=== PATIENT | female | born 2000 | race African-American/Black ===

== ENCOUNTER 2020-06-24 08:51 | Emergency (ER) | payer OTHER ==
--- NOTE | 2020-06-24 09:10 | ER ---
Nurse's Notes [facility] Name: Elinor Johnson Age: 20 yrs Sex: Female : 2000 Arrival Date: 06/24/2020 Time: 08:55 Bed 18 Private MD: Diagnosis: Acute pharyngitis Presentation: 06/24 09:08 Chief complaint: Patient states: sore throat, white patchy tonsils, and fever started iw yesterday morning. Coronavirus screen: At this time, the client does not indicate any symptoms associated with coronavirus-19. Ebola Screen: Patient negative for fever greater than or equal to 101.5 degrees Fahrenheit, and additional compatible Ebola Virus Disease symptoms Patient denies exposure to infectious person. Patient denies travel to an Ebola-affected area in the 21 days before illness onset. No symptoms or risks identified at this time. Initial Sepsis Screen: Does the patient meet any 2 criteria? Temp <36.0*C (96.8*F)) or > 38.3*C (100.9*F). HR > 90 bpm. Does the patient have a suspected source of infection?. Risk Assessment: Do you want to hurt yourself or someone else? Patient reports no desire to harm self or others. Onset of symptoms was June 23, 2020. 09:08 Method Of Arrival: Ambulatory iw 09:08 Acuity: AKIL 4 iw Triage Assessment: 09:09 General: Appears distressed, uncomfortable, Behavior is calm, cooperative, appropriate bp for age. Pain: Complains of pain in neck. EENT: Reports pain when swallowing. Neuro: No deficits noted. Cardiovascular: No deficits noted. Respiratory: No deficits noted. GI: No signs and/or symptoms were reported involving the gastrointestinal system. : No signs and/or symptoms were reported regarding the genitourinary system. Derm: No deficits noted. Musculoskeletal: No deficits noted. Historical: - Allergies: 09:10 No Known Allergies; iw - Home Meds: 09:10 None [Active]; iw - PMHx: 09:10 None; iw - PSHx: 09:10 None; iw - Immunization history:: Adult Immunizations unknown, Adult Immunizations not up to date. - Social history:: Smoking status: Patient denies any tobacco usage or history of. Smoking status: Patient denies any tobacco usage or history of. Screenin:10 Abuse screen: Denies threats or abuse. Denies injuries from another. Nutritional bp screening: No deficits noted. Tuberculosis screening: No symptoms or risk factors identified. Fall Risk None identified. Assessment: 09:10 General: SEE TRIAGE NOTE. Respiratory: Airway is patent Respiratory effort is even, bp unlabored, Breath sounds are clear bilaterally. EENT: Throat is reddened has patchy exudate bilaterally. 09:25 Reassessment: PT D/C HOME AMBULATORY WITH FAMILY, DX WITH ACUTE PHARYNGITIS. bp Vital Signs: 09:08 BP 126 / 91; Pulse 123; Resp 16 S; Temp 102(TE); Pulse Ox 100% on R/A; Weight 98.43 kg; iw Height 5 ft. 3 in. (160.02 cm); Pain 7/10; 09:08 Body Mass Index 38.44 (98.43 kg, 160.02 cm) iw ED Course: 08:55 Patient arrived in ED. ds1 09:00 Jax Frye RN is Primary Nurse. bp 09:02 Alan Alfredo NP is PHCP. pm1 09:02 Seven Dumont MD is Attending Physician. pm1 09:08 Strep Sent. iw 09:10 Triage completed. iw 09:10 Arm band placed on. bp 09:10 Patient has correct armband on for positive identification. Bed in low position. Call bp light in reach. Side rails up X2. Adult w/ patient. 09:25 No provider procedures requiring assistance completed. Patient did not have IV access bp during this emergency room visit. Administered Medications: 09:26 Drug: Ibuprofen 600 mg Route: PO; bp 09:26 Follow up: Response: Medication administered at discharge. bp 09:26 Drug: Decadron 10 mg Route: IM; Site: affected area; bp 09:26 Follow up: Response: Medication administered at discharge. bp Outcome: 09:10 Discharge ordered by . pm1 09:25 Discharged to home ambulatory, with family. bp 09:25 Condition: stable 09:25 Discharge instructions given to patient, Instructed on discharge instructions, follow up and referral plans. medication usage, Demonstrated understanding of instructions, follow-up care, medications, Prescriptions given X 1. 09:26 Patient left the ED. bp Signatures: eJssica Oropeza ds1 Yary Marshall RN RN iw Alan Alfredo, LUMBER PILER OPERATOR LUMBER PILER OPERATOR pm1 Jax Frey, RN RN bp
--- NOTE | 2020-06-24 09:11 | EDPHYS ---
Physician Documentation [facility] Name: Elinor Johnson Age: 20 yrs Sex: Female : 2000 Arrival Date: 06/24/2020 Time: 08:55 Bed 18 Private MD: ED Physician Seven Dumont HPI: 06/24 09:09 This 20 yrs old Black Female presents to ER via Ambulatory with complaints of Sore pm1 Throat. 09:09 The patient presents with sore throat. The patient describes throat pain as raw, pm1 scratchy. Onset: The symptoms/episode began/occurred yesterday. Severity of symptoms: in the emergency department the symptoms are actually worse. Modifying factors: the symptoms are aggravated by fluids, foods, swallowing, Patient's oral intake status: good. Associated signs and symptoms: Pertinent positives: fever, Pertinent negatives cough, earache, shortness of breath. The patient has experienced similar episodes in the past, multiple times, typically gets strep throat once per year around this time. The patient has not recently seen a physician. Historical: - Allergies: 09:10 No Known Allergies; iw - Home Meds: 09:10 None [Active]; iw - PMHx: 09:10 None; iw - PSHx: 09:10 None; iw - Immunization history:: Adult Immunizations unknown, Adult Immunizations not up to date. - Social history:: Smoking status: Patient denies any tobacco usage or history of. Smoking status: Patient denies any tobacco usage or history of. ROS: 09:11 Eyes: Negative for injury, pain, redness, and discharge. pm1 09:11 Neck: Negative for injury, pain, and swelling, Cardiovascular: Negative for chest pain, palpitations, and edema, Respiratory: Negative for shortness of breath, cough, wheezing, and pleuritic chest pain, Abdomen/GI: Negative for abdominal pain, nausea, vomiting, diarrhea, and constipation, Back: Negative for injury and pain, MS/Extremity: Negative for injury and deformity, Skin: Negative for injury, rash, and discoloration, Neuro: Negative for headache, weakness, numbness, tingling, and seizure. 09:11 Constitutional: Positive for fever, Negative for poor PO intake. 09:11 ENT: Positive for sore throat, Negative for drainage from ear(s), ear pain. Exam: 09:11 Constitutional: This is a well developed, well nourished patient who is awake, alert, pm1 and in no acute distress. Head/Face: Normocephalic, atraumatic. Chest/axilla: Normal chest wall appearance and motion. Nontender with no deformity. No lesions are appreciated. 09:11 Skin: Warm, dry with normal turgor. Normal color with no rashes, no lesions, and no evidence of cellulitis. MS/ Extremity: Pulses equal, no cyanosis. Neurovascular intact. Full, normal range of motion. 09:11 ENT: External ear(s): are unremarkable, Ear canal(s): are normal, TM's: are normal, Posterior pharynx: Airway: normal, patent, Tonsils: bilaterally enlarged, with erythema, with exudate, no ulcerations, peritonsillar mass, is not appreciated, pooling of secretions, is not appreciated. 09:11 Cardiovascular: Exam negative for acute changes, Rate: tachycardic, Rhythm: regular, Pulses: no pulse deficits are appreciated. 09:11 Respiratory: Exam negative for acute changes, respiratory distress, shortness of breath. 09:11 Neuro: Exam negative for acute changes, Orientation: is normal, Mentation: is normal, Motor: is normal, Sensation: is normal, Gait: is steady, at a normal pace, without difficulty. Vital Signs: 09:08 BP 126 / 91; Pulse 123; Resp 16 S; Temp 102(TE); Pulse Ox 100% on R/A; Weight 98.43 kg; iw Height 5 ft. 3 in. (160.02 cm); Pain 7/10; 09:08 Body Mass Index 38.44 (98.43 kg, 160.02 cm) iw MDM: 09:06 Patient medically screened. pm1 09:09 Counseling: I had a detailed discussion with the patient and/or guardian regarding: the pm1 historical points, exam findings, and any diagnostic results supporting the discharge/admit diagnosis, the need for outpatient follow up, to return to the emergency department if symptoms worsen or persist or if there are any questions or concerns that arise at home. 09:26 Data reviewed: vital signs. Data interpreted: Pulse oximetry: on room air is 100 %. pm1 Interpretation: normal. 06/24 09:04 Order name: Strep bp 06/24 09:24 Order name: Group A Streptococcus Rapid Sc; Complete Time: :25 EDMS Administered Medications: : Drug: Ibuprofen 600 mg Route: PO; bp : Follow up: Response: Medication administered at discharge. bp : Drug: Decadron 10 mg Route: IM; Site: affected area; bp : Follow up: Response: Medication administered at discharge. bp Disposition: 14:53 Co-signature as Attending Physician, Seven Dumont MD I agree with the assessment and kdr plan of care. Disposition: 06/24/20 09:10 Discharged to Home. Impression: Acute pharyngitis. - Condition is Stable. - Discharge Instructions: Fever, Adult, Pharyngitis. - Prescriptions for Amoxicillin 500 mg Oral Capsule - take 1 capsule by ORAL route every 8 hours for 10 days; 30 tablet. - Medication Reconciliation Form, Thank You Letter, Antibiotic Education, Prescription Opioid Use form. - Follow up: Emergency Department; When: As needed; Reason: Worsening of condition. Follow up: Private Physician; When: 2 - 3 days; Reason: Recheck today's complaints, Continuance of care, Re-evaluation by your physician. - Problem is new. - Symptoms have improved. Signatures: Dispatcher [employer] EDKS Seven Dumont MD MD kdr Yary Marshall RN RN Alan Alfredo NP EGG SORTER pm1 Jax Frey RN RN bp Corrections: (The following items were deleted from the chart) : 09:10 06/24/2020 09:10 Discharged to Home. Impression: Acute pharyngitis. Condition is bp Stable. Forms are Medication Reconciliation Form, Thank You Letter, Antibiotic Education, Prescription Opioid Use. Follow up: Emergency Department; When: As needed; Reason: Worsening of condition. Follow up: Private Physician; When: 2 - 3 days; Reason: Recheck today's complaints, Continuance of care, Re-evaluation by your physician. Problem is new. Symptoms have improved. pm1
[2020-06-24] MEDS ORDERED: dexAMETHasone 4 MG/ML VIAL ONE ×2 (09:32→09:33)
[2020-06-24] MEDS ORDERED: IBUPROFEN 200 MG TAB PO ONE (09:32)
[2020-06-24 09:47] VITALS: BP 126/91; TEMP 102; O2SAT 100
== END 2020-06-24 09:26 | disposition home or self-care (01) ==
LOC: ER 08:51
DX: J02.9 Acute pharyngitis, unspecified (principal)
CPT/HCPCS: 87070; 87081; 96372; 99283

== ENCOUNTER 2020-08-24 13:41 | Emergency (ER) | payer OTHER ==
--- OUTSIDE RECORDS SUMMARY | 2020-08-24 13:44 | XMS REPORT | Continuity of Care Document ---
:2000 Author Organization [facility] t Address [address] [place] [address] Dr. Cruz [address] [place] [id number] Care Team Providers Name Role Phone Unavailable Unavailable Unavailable Problems This patient has no known problems. Allergies, Adverse Reactions, Alerts This patient has no known allergies or adverse reactions. Medications This patient has no known medications. Procedures This patient has no known procedures. Results This patient has no known results.
[2020-08-24 15:08] LABS: Urine Blood NEGATIVE (NEG); Urine Glucose NEGATIVE (NEG); Urine Protein NEGATIVE (NEG); Urine pH 5.5 (5.0-7.0)
--- NOTE | 2020-08-24 15:13 | EDPHYS ---
Physician Documentation [facility] Name: Elinor Johnson Age: 20 yrs Sex: Female : 2000 Arrival Date: 08/24/2020 Time: 13:44 Bed 14 Private MD: ED Physician Sandie Thomas HPI: 08/24 15:12 This 20 yrs old Black Female presents to ER via Ambulatory with complaints of Back Pain.kb 15:12 The patient presents with pain that is acute. The symptoms are located in the low back. kb Onset: The symptoms/episode began/occurred 3 week(s) ago. The pain does not radiate. Associated signs and symptoms: The patient has no apparent associated signs or symptoms. The problem was sustained from unknown cause. Modifying factors: The patient symptoms are alleviated by nothing, the patient symptoms are aggravated by any movement. Severity of symptoms: At their worst the symptoms were mild, in the emergency department the symptoms are unchanged. The patient has not experienced similar symptoms in the past. The patient has not recently seen a physician. 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 - Social history:: Smoking status: Patient denies any tobacco usage or history of. ROS: 15:11 Constitutional: Negative for fever, chills, and weight loss, Cardiovascular: Negative kb for chest pain, palpitations, and edema, Respiratory: Negative for shortness of breath, cough, wheezing, and pleuritic chest pain, Abdomen/GI: Negative for abdominal pain, nausea, vomiting, diarrhea, and constipation, : Negative for injury, bleeding, discharge, and swelling, MS/Extremity: Negative for injury and deformity, Skin: Negative for injury, rash, and discoloration, Neuro: Negative for headache, weakness, numbness, tingling, and seizure. 15:11 Back: Positive for pain at rest, pain with movement, of the left low back and right low back. Exam: 15:11 Constitutional: This is a well developed, well nourished patient who is awake, alert, kb and in no acute distress. Head/Face: Normocephalic, atraumatic. Chest/axilla: Normal chest wall appearance and motion. Nontender with no deformity. No lesions are appreciated. Cardiovascular: Regular rate and rhythm with a normal S1 and S2. No gallops, murmurs, or rubs. Normal PMI, no JVD. No pulse deficits. Respiratory: Lungs have equal breath sounds bilaterally, clear to auscultation and percussion. No rales, rhonchi or wheezes noted. No increased work of breathing, no retractions or nasal flaring. Abdomen/GI: Soft, non-tender, with normal bowel sounds. No distension or tympany. No guarding or rebound. No evidence of tenderness throughout. Skin: Warm, dry with normal turgor. Normal color with no rashes, no lesions, and no evidence of cellulitis. MS/ Extremity: Pulses equal, no cyanosis. Neurovascular intact. Full, normal range of motion. Neuro: Awake and alert, GCS 15, oriented to person, place, time, and situation. Cranial nerves II-XII grossly intact. Motor strength 5/5 in all extremities. Sensory grossly intact. Cerebellar exam normal. Normal gait. 15:11 Back: pain, that is mild, of the left low back and right low back, ROM is normal, normal spinal alignment noted. Vital Signs: 14:02 BP 127 / 80; Pulse 101; Resp 16; Temp 97.7; Pulse Ox 100% on R/A; Weight 100.24 kg; iw Height 5 ft. 3 in. (160.02 cm); Pain 5/10; 14:02 Body Mass Index 39.15 (100.24 kg, 160.02 cm) iw MDM: 14:39 Patient medically screened. kb 15:11 Data reviewed: vital signs, nurses notes. Data interpreted: Pulse oximetry: on room air kb is 100 %. Interpretation: normal. Counseling: I had a detailed discussion with the patient and/or guardian regarding: the historical points, exam findings, and any diagnostic results supporting the discharge/admit diagnosis, lab results, the need for outpatient follow up, a family practitioner, to return to the emergency department if symptoms worsen or persist or if there are any questions or concerns that arise at home. 08/24 14:49 Order name: Urine Dipstick--Ancillary (enter results); Complete Time: 15:09 eb 08/24 14:49 Order name: Urine --Ancillary (enter results); Complete Time: 15:09 eb 08/24 14:45 Order name: Urine Test (obtain specimen); Complete Time: 14:49 kb 08/24 14:45 Order name: Urine Dipstick-Ancillary (obtain specimen); Complete Time: 14:50 kb Administered Medications: No medications were administered Disposition: 18:37 Co-signature as Attending Physician, Sandie Thomas MD. ma2 Disposition: 08/24/20 15:12 Discharged to Home. Impression: Low back pain. - Condition is Stable. - Discharge Instructions: Back Injury Prevention, [id number], Back Pain, Adult, [id number], Back Exercises, [id number]. - Prescriptions for Ibuprofen 800 mg Oral Tablet - take 1 tablet by ORAL route every 8 hours As needed take with food; 30 tablet. - Medication Reconciliation Form, Thank You Letter, Antibiotic Education, Prescription Opioid Use form. - Follow up: Emergency Department; When: As needed; Reason: Worsening of condition. Follow up: Private Physician; When: 2 - 3 days; Reason: Recheck today's complaints, Continuance of care, Re-evaluation by your physician. Signatures: Dispatcher [employer] Toya Valladares, JESSICA-Reggie STONE DECORATOR-Yary Griffin, Jazmyn Calix RN, RN RN jl7 Sandie Thomas MD MD ma2 Corrections: (The following items were deleted from the chart) 15:25 15:12 08/24/2020 15:12 Discharged to Home. Impression: Low back pain. Condition is jl7 Stable. Forms are Medication Reconciliation Form, Thank You Letter, Antibiotic Education, Prescription Opioid Use. Follow up: Emergency Department; When: As needed; Reason: Worsening of condition. Follow up: Private Physician; When: 2 - 3 days; Reason: Recheck today's complaints, Continuance of care, Re-evaluation by your physician. kb
--- NOTE | 2020-08-24 15:13 | ER ---
Nurse's Notes [facility] Name: Elinor Johnson Age: 20 yrs Sex: Female : 2000 Arrival Date: 08/24/2020 Time: 13:44 Bed 14 Private MD: Diagnosis: Low back pain Presentation: 08/24 14:00 Chief complaint: Patient states: is having low back pain X 4 weeks ago, does not iw remember injuring herself, feels like a hard cramp. intermittent, lying down makes it better, has been constipated, last BM was 3-4 days ago. Coronavirus screen: At this time, the client does not indicate any symptoms associated with coronavirus-19. Ebola Screen: Patient negative for fever greater than or equal to 101.5 degrees Fahrenheit, and additional compatible Ebola Virus Disease symptoms Patient denies exposure to infectious person. Patient denies travel to an Ebola-affected area in the 21 days before illness onset. No symptoms or risks identified at this time. Initial Sepsis Screen: Does the patient meet any 2 criteria? No. Patient's initial sepsis screen is negative. Does the patient have a suspected source of infection? No. Patient's initial sepsis screen is negative. Risk Assessment: Do you want to hurt yourself or someone else? Patient reports no desire to harm self or others. 14:00 Method Of Arrival: Ambulatory iw 14:00 Acuity: AKIL 4 iw 14:02 Onset of symptoms was July 24, 2020. 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 - Social history:: Smoking status: Patient denies any tobacco usage or history of. Screenin:55 Abuse screen: Denies threats or abuse. Denies injuries from another. Nutritional jl7 screening: No deficits noted. Tuberculosis screening: No symptoms or risk factors identified. Fall Risk None identified. Assessment: 14:55 General: Appears in no apparent distress. uncomfortable, Behavior is calm, cooperative, jl7 appropriate for age. Pain: Complains of pain in low back area Pain currently is 5 out of 10 on a pain scale. Neuro: Level of Consciousness is awake, alert, obeys commands, Oriented to person, place, time, situation. Cardiovascular: Patient's skin is warm and dry. Respiratory: Airway is patent Respiratory effort is even, unlabored, Respiratory pattern is regular, symmetrical. Derm: Skin is pink, warm \T\ dry. Musculoskeletal: Reports pain in low back area. Vital Signs: 14:02 BP 127 / 80; Pulse 101; Resp 16; Temp 97.7; Pulse Ox 100% on R/A; Weight 100.24 kg; iw Height 5 ft. 3 in. (160.02 cm); Pain 5/10; 14:02 Body Mass Index 39.15 (100.24 kg, 160.02 cm) iw ED Course: 13:44 Patient arrived in ED. mr 14:00 Toya Crow FNP-C [facility]. kb 14:00 Sandie Thomas MD is Attending Physician. kb 14:02 Triage completed. iw 14:04 Arm band placed on. iw 14:55 Patient has correct armband on for positive identification. Bed in low position. Call jl7 light in reach. Side rails up X 1. 14:56 Jazmyn Malcolm, DEXTER is Primary Nurse. jl7 15:25 No provider procedures requiring assistance completed. Patient did not have IV access jl7 during this emergency room visit. Administered Medications: No medications were administered Outcome: 15:12 Discharge ordered by MD. kb 15:25 Discharged to home ambulatory. jl7 15:25 Condition: stable 15:25 Discharge instructions given to patient, Instructed on discharge instructions, follow up and referral plans. medication usage, Demonstrated understanding of instructions, follow-up care, medications, Prescriptions given X 1. 15:25 Patient left the ED. jl7 Signatures: Toya Crow FNP-C FNP-Ckb RiveraJen Irene, DEXTER RENTERIA iw Jazmyn Malcolm RN RN jl7
[2020-08-24 15:39] VITALS: BP 127/80; TEMP 97.7; O2SAT 100
== END 2020-08-24 15:25 | disposition home or self-care (01) ==
LOC: ER 13:41
DX: M54.5 Low back pain (principal)
CPT/HCPCS: 81003; 81025; 99282